=== PATIENT | male | born 1960 | race Caucasian/White ===

== ENCOUNTER 2017-05-09 08:23 | Emergency (ER) | payer OTHER ==
[~2017-05-09] VITALS: Ht 160 cm; Wt 77.1 kg
[2017-05-09 10:00] LABS: BASOPHILS ABSOLUTE AUTO 0.04 K/mm3 (0.00-0.23); BASOPHILS PERCENT AUTO 1 % (0-2); EOSINOPHILS PERCENT AUTO 0 % (0-6); Hematocrit 41.5 % (37.0-53.0); Hemoglobin 14.8 g/dL (13.5-17.5); IMMATURE GRAN ABSOLUTE AUTO 0.02 K/mm3 (0.00-0.10); IMMATURE GRAN PERCENT AUTO 1 % (0-1); LYMPHOCYTES PERCENT AUTO 34 % (21-46); MONOCYTES ABSOLUTE AUTO 0.97 K/mm3 (0.16-1.47); MONOCYTES PERCENT AUTO 22 % (4-13); Mean Corpuscular HGB 33.6 pg (26.0-34.0); Mean Corpuscular HGB Conc 35.7 g/dL (31.5-36.5); Mean Corpuscular Volume 94 fL (80-100); Mean Platelet Volume 10.9 fL (9.1-12.4); NEUTROPHILS ABSOLUTE AUTO 1.91 K/mm3 (1.96-9.15); NEUTROPHILS PERCENT AUTO 43 % (41-73); Platelet Count 66 K/mm3 (150-400); RDW Coefficient Variation 12.9 % (11.7-14.2); RDW Standard Deviation 45.1 fL (35.1-46.3); White Blood Cell Count 4.44 K/mm3 (4.00-11.30)
[2017-05-09 10:14] LABS: Alanine Aminotransfer (ALT/SGP 62 U/L (12-78); Albumin/Globulin Ratio 0.7 (0.8-1.8); Alk Phos 76 U/L (50-136); Anion Gap 7 mmol/L (6-16); Aspartate Aminotrans (AST/SGOT 70 U/L (12-37); Bilirubin, Total 0.6 mg/dL (0.1-1.0); Blood Urea Nitrogen 7 mg/dL (8-24); Bun/Creatinine Ratio 9.6 (12.0-20.0); CO2, Blood 31 mmol/L (21-32); Calcium, Blood 8.2 mg/dL (8.5-10.1); Chloride, Blood 93 mmol/L (98-108); Creatinine, Blood 0.73 mg/dL (0.60-1.20); Globulin, Blood 4.3 g/dL (2.2-4.0); Glomerular Filtration Rate >60 (60-); Glucose, Blood 99 mg/dL (70-99); Potassium, Blood 3.1 mmol/L (3.5-5.5); Sodium, Blood 131 mmol/L (136-145); Total Protein, Blood 7.3 g/dL (6.4-8.2)
[2017-05-09] MEDS ORDERED: DOXY100 PO (11:28)
[2017-05-09] MEDS ORDERED: Zofran Odt4 MG SL (11:28)
[2017-10-13] MEDS ORDERED: Diclofenac Sodi50 MG PO (10:37)
[2017-10-13] MEDS ORDERED: ESCI20 PO (10:38)
[2017-10-13] MEDS ORDERED: OLANZAPINE15 MG PO (10:38)
[2017-10-13] MEDS ORDERED: EQ COMPLETE MU1 EAC1 PO (10:38)
[2017-10-13] MEDS ORDERED: K-Dur20 MEQ PO (10:39)
[2017-10-13] MEDS ORDERED: FURO20 PO (10:39)
[2017-10-13] MEDS ORDERED: OLAN5 PO (10:39)
[2017-10-13] MEDS ORDERED: Lexapro 10 mg T10 MG PO (15:06)
[2018-02-20] MEDS ORDERED: ALBU90OI INH (00:56)
[2018-02-20] MEDS ORDERED: LEVO750 PO (00:56)
[2018-02-20] MEDS ORDERED: Atrovent Inha12.9 GM INH (00:56)
[2018-02-20] MEDS ORDERED: Prednisone50 MG PO (00:56)
[2018-02-20] MEDS ORDERED: Norco 5-325 Ta1 EACH PO (00:57)
== END 2017-05-09 11:51 | disposition home or self-care (01) ==
LOC: ER 08:23
PROVIDERS: Physician Assistant
DX: J18.9 Pneumonia, unspecified organism (principal); E87.6 Hypokalemia; F17.210 Nicotine dependence, cigarettes, uncomplicated
CPT/HCPCS: 36415; 71046; 80053; 85025; 96360; 99283; J7030

== ENCOUNTER 2017-07-06 15:26 | Observation (INO) | payer OTHER ==
[~2017-07-06] VITALS: Ht 162.6 cm; Wt 79.4 kg
[~2017-07-06 15:26] MED LIST: DOXY100 PO; Zofran Odt4 MG SL
[2017-07-06 16:16] LABS: BASOPHILS ABSOLUTE AUTO 0.07 K/mm3 (0.00-0.23); BASOPHILS PERCENT AUTO 1 % (0-2); EOSINOPHILS ABSOLUTE AUTO 0.06 K/mm3 (0.00-0.68); EOSINOPHILS PERCENT AUTO 1 % (0-6); Hematocrit 46.5 % (37.0-53.0); IMMATURE GRAN ABSOLUTE AUTO 0.01 K/mm3 (0.00-0.10); IMMATURE GRAN PERCENT AUTO 0 % (0-1); LYMPHOCYTES ABSOLUTE AUTO 4.76 K/mm3 (0.84-5.20); LYMPHOCYTES PERCENT AUTO 67 % (21-46); MONOCYTES ABSOLUTE AUTO 0.67 K/mm3 (0.16-1.47); MONOCYTES PERCENT AUTO 9 % (4-13); Mean Corpuscular HGB 33.5 pg (26.0-34.0); Mean Corpuscular HGB Conc 34.4 g/dL (31.5-36.5); Mean Corpuscular Volume 97 fL (80-100); Mean Platelet Volume 9.5 fL (9.1-12.4); NEUTROPHILS ABSOLUTE AUTO 1.53 K/mm3 (1.96-9.15); NEUTROPHILS PERCENT AUTO 22 % (41-73); Platelet Count 104 K/mm3 (150-400); RDW Coefficient Variation 13.9 % (11.7-14.2); RDW Standard Deviation 50.1 fL (35.1-46.3); Red Blood Cell Count 4.78 M/mm3 (4.30-5.90)
[2017-07-06 16:35] LABS: Alanine Aminotransfer (ALT/SGP 70 U/L (12-78); Albumin, Blood 3.8 g/dL (3.4-5.0); Albumin/Globulin Ratio 0.8 (0.8-1.8); Alk Phos 106 U/L (50-136); Anion Gap 11 mmol/L (6-16); Aspartate Aminotrans (AST/SGOT 84 U/L (12-37); Bilirubin, Total 0.3 mg/dL (0.1-1.0); Blood Urea Nitrogen 10 mg/dL (8-24); Bun/Creatinine Ratio 14.8 (12.0-20.0); CO2, Blood 20 mmol/L (21-32); Calcium, Blood 8.4 mg/dL (8.5-10.1); Chloride, Blood 110 mmol/L (98-108); Creatinine, Blood 0.68 mg/dL (0.60-1.20); Ethanol (Alcohol), Blood, Med 296 mg/dL; Globulin, Blood 4.8 g/dL (2.2-4.0); Glomerular Filtration Rate >60 (60-); Glucose, Blood 116 mg/dL (70-99); Potassium, Blood 4.1 mmol/L (3.5-5.5); Salicylate 5.5 mg/dL (2.8-20.0); Sodium, Blood 141 mmol/L (136-145); Total Protein, Blood 8.6 g/dL (6.4-8.2)
[2017-07-06 16:39] LABS: Thyroid Stimulating Hormone 0.801 uIU/mL (0.360-4.800)
[2017-07-06 16:40] LABS: Acetaminophen, Random <2.0 ug/mL (10.0-30.0)
[2017-07-06 17:46] LABS: Source, Urine Clean Catch
[2017-07-06 18:04] LABS: Appearance, Urine Clear (Clear); Bilirubin, Urine Neg (Neg); Blood, Urine 1+ (Neg); Color, Urine Yellow (P-Yellow); Glucose Qualitative, Urine Neg (Neg); Ketones, Urine Neg (Neg); Leukocyte Esterase, Urine Neg (Neg); Nitrite, Urine Neg (Neg); Protein, Urine 3+ (Neg); Urobilinogen, Urine NORM (Normal)
[2017-07-06 18:23] LABS: Bacteria Few /hpf; Squamous Epithelial Cells Few /hpf (Few); White Blood Cells, Urine 0-2 /hpf (0-5)
[2017-07-06 18:31] LABS: U Amphetamine Screen Not Detected; U Barbituate Screen Not Detected; U Benzodiazapine Screen Not Detected; U Buprenorphine Screen Not Detected; U Cannabinoids Screen Not Detected; U Cocaine Screen Not Detected; U Methadone Screen Not Detected; U Methamphetamine Screen Not Detected; U Opiates Screen Not Detected; U Oxycodone Screen Not Detected; U Phencyclidine Screen Not Detected; U Propoxyphene Screen Not Detected
[2017-10-13] MEDS ORDERED: Diclofenac Sodi50 MG PO (10:37)
[2017-10-13] MEDS ORDERED: EQ COMPLETE MU1 EAC1 PO (10:38)
[2017-10-13] MEDS ORDERED: OLANZAPINE15 MG PO (10:38)
[2017-10-13] MEDS ORDERED: ESCI20 PO (10:38)
[2017-10-13] MEDS ORDERED: OLAN5 PO (10:39)
[2017-10-13] MEDS ORDERED: K-Dur20 MEQ PO (10:39)
[2017-10-13] MEDS ORDERED: FURO20 PO (10:39)
[2017-10-13] MEDS ORDERED: Lexapro 10 mg T10 MG PO (15:06)
[2018-02-20] MEDS ORDERED: ALBU90OI INH (00:56)
[2018-02-20] MEDS ORDERED: Atrovent Inha12.9 GM INH (00:56)
[2018-02-20] MEDS ORDERED: Prednisone50 MG PO (00:56)
[2018-02-20] MEDS ORDERED: LEVO750 PO (00:56)
[2018-02-20] MEDS ORDERED: Norco 5-325 Ta1 EACH PO (00:57)
== END 2017-07-07 11:33 | disposition home or self-care (01) ==
LOC: ER 15:26 → EOR 15:27
PROVIDERS: Emergency Medicine
DX: R45.851 Suicidal ideations (principal); F32.9 Major depressive disorder, single episode, unspecified; R45.1 Restlessness and agitation; F10.129 Alcohol abuse with intoxication, unspecified; F17.210 Nicotine dependence, cigarettes, uncomplicated; C34.91 Malignant neoplasm of unspecified part of right bronchus or lung; C34.92 Malignant neoplasm of unspecified part of left bronchus or lung; C18.9 Malignant neoplasm of colon, unspecified; Z90.49 Acquired absence of other specified parts of digestive tract
CPT/HCPCS: 36415; 80053; 81001; 84443; 85025; 96372; 99285; G0378; G0480; J1200; J1630; J2060

== ENCOUNTER 2017-07-14 16:11 | Observation (INO) | payer OTHER ==
[~2017-07-14] VITALS: Ht 160 cm; Wt 72.6 kg
[2017-07-14] MEDS ORDERED: DICL25ER PO (16:25)
[2017-07-14] MEDS ORDERED: QUET25 PO (16:25)
[2017-07-14] MEDS ORDERED: ESCI10 PO (16:25)
[2017-07-14 17:35] LABS: Source, Urine Clean Catch
[2017-07-14 17:40] LABS: Appearance, Urine Clear (Clear); Bilirubin, Urine Neg (Neg); Blood, Urine Neg (Neg); Color, Urine Yellow (P-Yellow); Glucose Qualitative, Urine Neg (Neg); Ketones, Urine Neg (Neg); Leukocyte Esterase, Urine Neg (Neg); Nitrite, Urine Neg (Neg); Protein, Urine 1+ (Neg); Urobilinogen, Urine NORM (Normal)
[2017-07-14 17:41] LABS: BASOPHILS ABSOLUTE AUTO 0.08 K/mm3 (0.00-0.23); BASOPHILS PERCENT AUTO 1 % (0-2); EOSINOPHILS ABSOLUTE AUTO 0.05 K/mm3 (0.00-0.68); EOSINOPHILS PERCENT AUTO 1 % (0-6); Hematocrit 45.6 % (37.0-53.0); IMMATURE GRAN ABSOLUTE AUTO 0.01 K/mm3 (0.00-0.10); IMMATURE GRAN PERCENT AUTO 0 % (0-1); LYMPHOCYTES ABSOLUTE AUTO 2.84 K/mm3 (0.84-5.20); LYMPHOCYTES PERCENT AUTO 48 % (21-46); MONOCYTES ABSOLUTE AUTO 0.69 K/mm3 (0.16-1.47); MONOCYTES PERCENT AUTO 12 % (4-13); Mean Corpuscular HGB 33.7 pg (26.0-34.0); Mean Corpuscular HGB Conc 35.1 g/dL (31.5-36.5); Mean Corpuscular Volume 96 fL (80-100); Mean Platelet Volume 9.8 fL (9.1-12.4); NEUTROPHILS ABSOLUTE AUTO 2.28 K/mm3 (1.96-9.15); NEUTROPHILS PERCENT AUTO 38 % (41-73); Platelet Count 117 K/mm3 (150-400); RDW Coefficient Variation 13.4 % (11.7-14.2); RDW Standard Deviation 48.1 fL (35.1-46.3); Red Blood Cell Count 4.75 M/mm3 (4.30-5.90); White Blood Cell Count 5.95 K/mm3 (4.00-11.30)
[2017-07-14 18:06] LABS: Alanine Aminotransfer (ALT/SGP 64 U/L (12-78); Albumin, Blood 3.8 g/dL (3.4-5.0); Albumin/Globulin Ratio 0.8 (0.8-1.8); Alk Phos 99 U/L (50-136); Anion Gap 12 mmol/L (6-16); Aspartate Aminotrans (AST/SGOT 71 U/L (12-37); Bilirubin, Total 0.5 mg/dL (0.1-1.0); Blood Urea Nitrogen 5 mg/dL (8-24); Bun/Creatinine Ratio 7.4 (12.0-20.0); CO2, Blood 21 mmol/L (21-32); Calcium, Blood 8.3 mg/dL (8.5-10.1); Chloride, Blood 106 mmol/L (98-108); Creatinine, Blood 0.67 mg/dL (0.60-1.20); Ethanol (Alcohol), Blood, Med 208 mg/dL; Globulin, Blood 4.5 g/dL (2.2-4.0); Glomerular Filtration Rate >60 (60-); Glucose, Blood 96 mg/dL (70-99); Potassium, Blood 3.8 mmol/L (3.5-5.5); Salicylate 4.8 mg/dL (2.8-20.0); Sodium, Blood 139 mmol/L (136-145); Thyroxine (T4) 7.2 ug/dL (4.5-12.1); Total Protein, Blood 8.3 g/dL (6.4-8.2)
[2017-07-14 18:12] LABS: U Amphetamine Screen Not Detected; U Barbituate Screen Not Detected; U Benzodiazapine Screen DETECTED; U Buprenorphine Screen Not Detected; U Cannabinoids Screen Not Detected; U Cocaine Screen Not Detected; U Methadone Screen Not Detected; U Methamphetamine Screen Not Detected; U Opiates Screen Not Detected; U Oxycodone Screen Not Detected; U Phencyclidine Screen Not Detected; U Propoxyphene Screen Not Detected
[2017-07-14 18:13] LABS: Acetaminophen, Random <2.0 ug/mL (10.0-30.0)
[2017-10-13] MEDS ORDERED: Diclofenac Sodi50 MG PO (10:37)
[2017-10-13] MEDS ORDERED: ESCI20 PO (10:38)
[2017-10-13] MEDS ORDERED: EQ COMPLETE MU1 EAC1 PO (10:38)
[2017-10-13] MEDS ORDERED: OLANZAPINE15 MG PO (10:38)
[2017-10-13] MEDS ORDERED: FURO20 PO (10:39)
[2017-10-13] MEDS ORDERED: OLAN5 PO (10:39)
[2017-10-13] MEDS ORDERED: K-Dur20 MEQ PO (10:39)
[2017-10-13] MEDS ORDERED: Lexapro 10 mg T10 MG PO (15:06)
[2018-02-20] MEDS ORDERED: Prednisone50 MG PO (00:56)
[2018-02-20] MEDS ORDERED: Atrovent Inha12.9 GM INH (00:56)
[2018-02-20] MEDS ORDERED: ALBU90OI INH (00:56)
[2018-02-20] MEDS ORDERED: LEVO750 PO (00:56)
[2018-02-20] MEDS ORDERED: Norco 5-325 Ta1 EACH PO (00:57)
== END 2017-07-16 10:10 | disposition home or self-care (01) ==
LOC: ER 16:11 → EOR 16:12
PROVIDERS: Physician Assistant
DX: R45.851 Suicidal ideations (principal); R45.850 Homicidal ideations; F32.9 Major depressive disorder, single episode, unspecified; F10.129 Alcohol abuse with intoxication, unspecified; F17.200 Nicotine dependence, unspecified, uncomplicated; Z79.899 Other long term (current) drug therapy; Z85.038 Personal history of other malignant neoplasm of large intestine; Z85.118 Personal history of other malignant neoplasm of bronchus and lung; Z90.49 Acquired absence of other specified parts of digestive tract; Y90.7 Blood alcohol level of 200-239 mg/100 ml
CPT/HCPCS: 80053; 84436; 84443; 85025; 96372; 99285; G0378; G0480; Q3014

== ENCOUNTER 2017-10-13 20:07 | Emergency (ER) | payer OTHER ==
[~2017-10-13] VITALS: Ht 160 cm; Wt 73.9 kg
[~2017-10-13 20:07] MED LIST changes: +DICL25ER PO; +Diclofenac Sodi50 MG PO; +EQ COMPLETE MU1 EAC1 PO; +ESCI10 PO; +ESCI20 PO; +FURO20 PO; +K-Dur20 MEQ PO; +Lexapro 10 mg T10 MG PO; +OLAN5 PO; +OLANZAPINE15 MG PO; +QUET25 PO
== END 2017-10-13 20:50 | disposition home or self-care (01) ==
LOC: ER 20:07
DX: F10.14 Alcohol abuse with alcohol-induced mood disorder (principal); Z79.899 Other long term (current) drug therapy; I10 Essential (primary) hypertension; F17.200 Nicotine dependence, unspecified, uncomplicated
CPT/HCPCS: 99282

== ENCOUNTER 2017-10-14 10:23 | Emergency (ER) | payer OTHER ==
[~2017-10-14] VITALS: Ht 160 cm; Wt 73.9 kg
== END 2017-10-14 10:35 | disposition home or self-care (01) ==
LOC: ER 10:23
DX: F10.129 Alcohol abuse with intoxication, unspecified (principal); Z79.899 Other long term (current) drug therapy; F17.200 Nicotine dependence, unspecified, uncomplicated
CPT/HCPCS: 99283

== ENCOUNTER 2017-10-14 17:39 | Emergency (ER) | payer OTHER ==
[~2017-10-14] VITALS: Ht 160 cm; Wt 73.9 kg
== END 2017-10-14 19:06 ==
LOC: ER 17:39
DX: F32.9 Major depressive disorder, single episode, unspecified (principal); R45.851 Suicidal ideations; Z79.899 Other long term (current) drug therapy; F17.200 Nicotine dependence, unspecified, uncomplicated
CPT/HCPCS: 99283

== ENCOUNTER 2018-01-13 05:12 | Emergency (ER) | payer OTHER ==
[~2018-01-13] VITALS: Ht 160 cm; Wt 74.8 kg
== END 2018-01-13 05:22 ==
LOC: ER 05:12
DX: F10.129 Alcohol abuse with intoxication, unspecified (principal); F17.200 Nicotine dependence, unspecified, uncomplicated; Z79.899 Other long term (current) drug therapy
CPT/HCPCS: 99282

== ENCOUNTER 2018-04-27 13:13 | Emergency (ER) | payer OTHER ==
[~2018-04-27] VITALS: Ht 160 cm; Wt 83.5 kg
[~2018-04-27 13:13] MED LIST changes: +ALBU90OI INH; +Atrovent Inha12.9 GM INH; +LEVO750 PO; +Norco 5-325 Ta1 EACH PO; +Prednisone50 MG PO
[2018-04-27 13:45] LABS: BASOPHILS ABSOLUTE AUTO 0.07 K/mm3 (0.00-0.23); BASOPHILS PERCENT AUTO 1 % (0-2); EOSINOPHILS ABSOLUTE AUTO 0.02 K/mm3 (0.00-0.68); EOSINOPHILS PERCENT AUTO 0 % (0-6); Hematocrit 48.9 % (37.0-53.0); Hemoglobin 17.3 g/dL (13.5-17.5); IMMATURE GRAN ABSOLUTE AUTO 0.02 K/mm3 (0.00-0.10); IMMATURE GRAN PERCENT AUTO 0 % (0-1); LYMPHOCYTES ABSOLUTE AUTO 3.06 K/mm3 (0.84-5.20); LYMPHOCYTES PERCENT AUTO 57 % (21-46); MONOCYTES ABSOLUTE AUTO 0.59 K/mm3 (0.16-1.47); MONOCYTES PERCENT AUTO 11 % (4-13); Mean Corpuscular HGB 33.7 pg (26.0-34.0); Mean Corpuscular HGB Conc 35.4 g/dL (31.5-36.5); Mean Corpuscular Volume 95 fL (80-100); Mean Platelet Volume 9.7 fL (9.1-12.4); NEUTROPHILS ABSOLUTE AUTO 1.63 K/mm3 (1.96-9.15); NEUTROPHILS PERCENT AUTO 30 % (41-73); Platelet Count 115 K/mm3 (150-400); RDW Coefficient Variation 12.7 % (11.7-14.2); RDW Standard Deviation 45.1 fL (35.1-46.3); Red Blood Cell Count 5.14 M/mm3 (4.30-5.90); White Blood Cell Count 5.39 K/mm3 (4.00-11.30)
[2018-04-27 14:04] LABS: Alanine Aminotransfer (ALT/SGP 102 U/L (12-78); Albumin/Globulin Ratio 0.9 (0.8-1.8); Alk Phos 107 U/L (50-136); Anion Gap 8 mmol/L (6-16); Aspartate Aminotrans (AST/SGOT 120 U/L (12-37); Bilirubin, Total 0.6 mg/dL (0.1-1.0); Blood Urea Nitrogen 6 mg/dL (8-24); Bun/Creatinine Ratio 8.2 (12.0-20.0); CO2, Blood 26 mmol/L (21-32); Calcium, Blood 8.7 mg/dL (8.5-10.1); Chloride, Blood 105 mmol/L (98-108); Creatinine, Blood 0.74 mg/dL (0.60-1.20); Globulin, Blood 4.4 g/dL (2.2-4.0); Glomerular Filtration Rate >60 (60-); Glucose, Blood 101 mg/dL (70-99); Potassium, Blood 3.7 mmol/L (3.5-5.5); Sodium, Blood 139 mmol/L (136-145); Total Protein, Blood 8.4 g/dL (6.4-8.2); Troponin I <0.015 ng/mL (0.000-0.040)
== END 2018-04-27 16:23 | disposition home or self-care (01) ==
LOC: ER 13:13
PROVIDERS: Physician Assistant
DX: R55 Syncope and collapse (principal); F10.20 Alcohol dependence, uncomplicated; J44.9 Chronic obstructive pulmonary disease, unspecified; F32.9 Major depressive disorder, single episode, unspecified; F17.200 Nicotine dependence, unspecified, uncomplicated
CPT/HCPCS: 36415; 71046; 80053; 84484; 85025; 93005; 93010; 99284-25

== ENCOUNTER 2018-08-24 00:55 | Inpatient (IN) | payer OTHER ==
[~2018-08-24] VITALS: Ht 160 cm; Wt 82.4 kg
[2018-08-24 01:27] LABS: BASOPHILS ABSOLUTE AUTO 0.09 K/mm3 (0.00-0.23); BASOPHILS PERCENT AUTO 1 % (0-2); EOSINOPHILS ABSOLUTE AUTO 0.11 K/mm3 (0.00-0.68); EOSINOPHILS PERCENT AUTO 2 % (0-6); Hematocrit 44.4 % (37.0-53.0); Hemoglobin 15.3 g/dL (13.5-17.5); IMMATURE GRAN ABSOLUTE AUTO 0.02 K/mm3 (0.00-0.10); IMMATURE GRAN PERCENT AUTO 0 % (0-1); LYMPHOCYTES ABSOLUTE AUTO 3.43 K/mm3 (0.84-5.20); LYMPHOCYTES PERCENT AUTO 54 % (21-46); MONOCYTES ABSOLUTE AUTO 0.55 K/mm3 (0.16-1.47); MONOCYTES PERCENT AUTO 9 % (4-13); Mean Corpuscular HGB 32.8 pg (26.0-34.0); Mean Corpuscular HGB Conc 34.5 g/dL (31.5-36.5); Mean Corpuscular Volume 95 fL (80-100); Mean Platelet Volume 9.4 fL (9.1-12.4); NEUTROPHILS PERCENT AUTO 34 % (41-73); Platelet Count 192 K/mm3 (150-400); RDW Standard Deviation 49.2 fL (35.1-46.3); Red Blood Cell Count 4.67 M/mm3 (4.30-5.90)
[2018-08-24 01:41] LABS: Alanine Aminotransfer (ALT/SGP 97 U/L (12-78); Albumin, Blood 3.1 g/dL (3.4-5.0); Albumin/Globulin Ratio 0.7 (0.8-1.8); Alk Phos 110 U/L (50-136); Anion Gap 8 mmol/L (6-16); Aspartate Aminotrans (AST/SGOT 114 U/L (12-37); Bilirubin, Total 0.5 mg/dL (0.1-1.0); Blood Urea Nitrogen 5 mg/dL (8-24); CO2, Blood 25 mmol/L (21-32); Calcium, Blood 8.2 mg/dL (8.5-10.1); Chloride, Blood 112 mmol/L (98-108); Creatinine, Blood 0.62 mg/dL (0.60-1.20); Ethanol (Alcohol), Blood, Med 244 mg/dL; Globulin, Blood 4.3 g/dL (2.2-4.0); Glomerular Filtration Rate >60 (60-); Glucose, Blood 123 mg/dL (70-99); Potassium, Blood 3.7 mmol/L (3.5-5.5); Sodium, Blood 145 mmol/L (136-145); Total Protein, Blood 7.4 g/dL (6.4-8.2); Troponin I <0.015 ng/mL (0.000-0.040)
--- NOTE | 2018-08-24 06:05 | NUR ---
PCU ADMIT / SHIFT SUMMARY PT BROUGHT TO PCU RM 13 FROM THE ER @ 0430 BY [facility]. PT ABLE TO STAND AND AMBULATE TO BED W/OUT ASSISTANCE. PT A&O X4, DIRTY IN APPEARANCE W/ HANDS COVERED IN DIRT AND CLOTHING/BODY SMELLING OF OLD URINE. LUNG SOUNDS WHEEZY T/O. SPO2 > 92% ON 2L NC. MONITOR SHOWS NSR. PT HAS VISIBLE TREMOR AND STATES NORMALLY HAVING FIRST DRINK OF THE DAY @ 0700. MEDICATING PT PER EMAR. WILL CONTINUE TO MONITOR AND PROVIDE CARE UNTIL REPORT OFF TO DAY SHIFT RN.
[2018-08-24 06:46] LABS: Adenovirus Not Detected (NOT DETECT); Bordetella pertussis Not Detected (NOT DETECT); Chlamydophila pneumoniae Not Detected (NOT DETECT); Coronavirus 229E Not Detected (NOT DETECT); Coronavirus HKU1 Not Detected (NOT DETECT); Coronavirus NL63 Not Detected (NOT DETECT); Coronavirus OC43 Not Detected (NOT DETECT); Human Metapneumovirus Not Detected (NOT DETECT); Human Rhinovirus/Enterovirus Not Detected (NOT DETECT); Influenza A Not Detected (NOT DETECT); Influenza A/2009-H1 Not Detected (NOT DETECT); Influenza A/H1 Not Detected (NOT DETECT); Influenza A/H3 Not Detected (NOT DETECT); Influenza B Not Detected (NOT DETECT); Mycoplasma pneumoniae Not Detected (NOT DETECT); Parainfluenza Virus 1 Not Detected (NOT DETECT); Parainfluenza Virus 2 Not Detected (NOT DETECT); Parainfluenza Virus 3 Not Detected (NOT DETECT); Parainfluenza Virus 4 Not Detected (NOT DETECT); Respiratory Syncytial Virus Not Detected (NOT DETECT)
[2018-08-24 07:26] LABS: Hematocrit 46.4 % (37.0-53.0); Hemoglobin 15.6 g/dL (13.5-17.5); Mean Corpuscular HGB 32.2 pg (26.0-34.0); Mean Corpuscular HGB Conc 33.6 g/dL (31.5-36.5); Mean Corpuscular Volume 96 fL (80-100); Mean Platelet Volume 9.6 fL (9.1-12.4); Platelet Count 167 K/mm3 (150-400); RDW Coefficient Variation 14.1 % (11.7-14.2); RDW Standard Deviation 49.5 fL (35.1-46.3); Red Blood Cell Count 4.85 M/mm3 (4.30-5.90); White Blood Cell Count 2.76 K/mm3 (4.00-11.30)
[2018-08-24 07:45] LABS: Alanine Aminotransfer (ALT/SGP 98 U/L (12-78); Albumin, Blood 3.3 g/dL (3.4-5.0); Albumin/Globulin Ratio 0.7 (0.8-1.8); Alk Phos 117 U/L (50-136); Anion Gap 10 mmol/L (6-16); Aspartate Aminotrans (AST/SGOT 93 U/L (12-37); Bilirubin, Total 0.3 mg/dL (0.1-1.0); Blood Urea Nitrogen 7 mg/dL (8-24); Bun/Creatinine Ratio 10.5 (12.0-20.0); CO2, Blood 22 mmol/L (21-32); Calcium, Blood 8.6 mg/dL (8.5-10.1); Chloride, Blood 110 mmol/L (98-108); Creatinine, Blood 0.67 mg/dL (0.60-1.20); Globulin, Blood 4.5 g/dL (2.2-4.0); Glomerular Filtration Rate >60 (60-); Glucose, Blood 193 mg/dL (70-99); Potassium, Blood 3.8 mmol/L (3.5-5.5); Sodium, Blood 142 mmol/L (136-145); Total Protein, Blood 7.8 g/dL (6.4-8.2)
--- NOTE | 2018-08-24 13:21 | NUR ---
Assumed care of pt at approx 0700. Pt presents with slurred speech and states that he is currenly intoxicated. pt VSS, in no apparent sign of distress. States pain in chest that worsens with inspiration and movement. Dr Conley notified and troponin ordered. Trops negative. Pt educated on difference between chest pain related to cardiac function and substernal esophogeal pain. Pt states pain began after eating breakfast. No further c/o pain at this time (1337) Pt states he drinks 9-11 "the big ones" of beers a day. Last beer consumed at approx 2000 on 08/23. Pt states he starts drinking at 0700 every day "like clockwork". Pt monitored per CIWA protocol and ativan given per orders. Pt states "I just went on a big binger" which lead to his coming to the ED. Will continue to monitor and update as approrpiate. Will continue CIWA monitoring. See shift assessment for detailed assessment.
--- NOTE | 2018-08-24 18:44 | NUR ---
shift summary pt remains stable. vss. no apparent sign of distress. ciwa assessment completed q4h per protocol. last ciwa completed at approx 1815, score 13, 2mg ativan given per orders. pt states that he would like to sleep tonight. pt pleasant, compliant, calls appropriately. pt states he voided 3 times this shift. pt a&o, withdrawing from etoh. will continue to monitor until report is given to rashmi james.
--- NOTE | 2018-08-25 06:46 | NUR ---
SHIFT SUMMARY PT A&O X4. PT ABLE TO SLEEP MAJORITY OF SHIFT W/ NO COMPLAINT EXCEPT FOR MILD HEADACHE W/ NO REQUEST FOR MEDICATION. TREMORS IN ARMS WHEN EXTENDED. PT STATES ETOH WITHDRAWAL "NOT BAD YET BUT IT WILL BE." VSS. WILL CONTINUE TO MONITOR AND PROVIDE CARE UNTIL REPORT OFF TO DAY SHIFT RN.
[2018-08-25 11:34] LABS: BASOPHILS ABSOLUTE AUTO 0.01 K/mm3 (0.00-0.23); BASOPHILS PERCENT AUTO 0 % (0-2); EOSINOPHILS PERCENT AUTO 0 % (0-6); Hematocrit 45.2 % (37.0-53.0); Hemoglobin 15.5 g/dL (13.5-17.5); IMMATURE GRAN ABSOLUTE AUTO 0.04 K/mm3 (0.00-0.10); IMMATURE GRAN PERCENT AUTO 0 % (0-1); LYMPHOCYTES PERCENT AUTO 8 % (21-46); MONOCYTES ABSOLUTE AUTO 0.35 K/mm3 (0.16-1.47); MONOCYTES PERCENT AUTO 4 % (4-13); Mean Corpuscular HGB 32.4 pg (26.0-34.0); Mean Corpuscular HGB Conc 34.3 g/dL (31.5-36.5); Mean Corpuscular Volume 94 fL (80-100); Mean Platelet Volume 10.1 fL (9.1-12.4); NEUTROPHILS ABSOLUTE AUTO 8.11 K/mm3 (1.96-9.15); NEUTROPHILS PERCENT AUTO 88 % (41-73); Platelet Count 188 K/mm3 (150-400); RDW Coefficient Variation 13.5 % (11.7-14.2); RDW Standard Deviation 46.9 fL (35.1-46.3); Red Blood Cell Count 4.79 M/mm3 (4.30-5.90); White Blood Cell Count 9.21 K/mm3 (4.00-11.30)
[2018-08-25 12:02] LABS: Albumin, Blood 2.9 g/dL (3.4-5.0); Anion Gap 7 mmol/L (6-16); Blood Urea Nitrogen 11 mg/dL (8-24); Bun/Creatinine Ratio 15.4 (12.0-20.0); CO2, Blood 27 mmol/L (21-32); Calcium, Blood 8.8 mg/dL (8.5-10.1); Chloride, Blood 107 mmol/L (98-108); Creatinine, Blood 0.71 mg/dL (0.60-1.20); Glomerular Filtration Rate >60 (60-); Glucose, Blood 226 mg/dL (70-99); Phosphorus, Blood 2.4 mg/dL (2.5-4.9); Potassium, Blood 3.9 mmol/L (3.5-5.5); Sodium, Blood 141 mmol/L (136-145)
--- NOTE | 2018-08-25 13:16 | NUR ---
Assumed care of pt at approx 0700. vss with exception of hypertension. pt in no apparent sign of distress. completed CIWA assessment per protocol. Ativan given PRN per CIWA protocol. Pt states desire to become sober post hospital stay. Dr. Conley in this AM with pt. to update plan of care. admission orders received per dr. conley. GI consult obtained per md orders. continuing to closely monitor withdrawl and medicate per protocol. pt denies pain at this time. Pt denies chest pain or chest pressure.pt a&ox4, calls appropriately, bed in lowest, locked position. will continue to monitor as appropriate. see shift assessment for detailed assessment.
--- NOTE | 2018-08-25 18:06 | NUR ---
Shift Summary No acute changes this shift. Pt remains compliant with all care provided by this RN. CIWA assessment completed per protocol. Total of 6mg ativan given this shift per MAR orders with CIWA protocol. Pt with bed alarm on all shift d/t fall risk. Assisted pt with urinal and to toilet for BM this shift. VSS. No concerns, questions, or complaints from pt at this time. Pt calls appropriately, bed in lowest position, wheels locked. Pt denies chest pain/pressure. SOB with activity and moderate BUSTAMANTE noted this shift. Dr Sullivan consulted by Dr. Conley. In to see pt this afternoon. Dr Sullivan ordered Barium Esophagous Eval for tomorrow, 08/26. No further orders recieved at this time Will continue to monitor and update as appropriate.
--- NOTE | 2018-08-26 00:01 | NUR ---
WITHDRAWAL UPDATE INITIAL CIWA SCORE OF "12" BEGINNING OF THIS SHIFT. CIWA OF "0" AT THIS TIME. PT STATES WITHDRAWAL SYMPTOMS "COME AND GO" AND STATES SYMPTOMS TO BE LESS OVER NIGHT. PT ALSO STATES SYMPTOMS WORSEN IN THE MORNINGS AROUND 0700. WILL CONTINUE TO MONITOR AND TREAT PER ORDERS.
[2018-08-26 03:56] LABS: BASOPHILS ABSOLUTE AUTO 0.01 K/mm3 (0.00-0.23); BASOPHILS PERCENT AUTO 0 % (0-2); EOSINOPHILS ABSOLUTE AUTO 0.01 K/mm3 (0.00-0.68); EOSINOPHILS PERCENT AUTO 0 % (0-6); Hemoglobin 15.3 g/dL (13.5-17.5); IMMATURE GRAN ABSOLUTE AUTO 0.06 K/mm3 (0.00-0.10); IMMATURE GRAN PERCENT AUTO 1 % (0-1); LYMPHOCYTES ABSOLUTE AUTO 0.76 K/mm3 (0.84-5.20); LYMPHOCYTES PERCENT AUTO 8 % (21-46); MONOCYTES ABSOLUTE AUTO 0.39 K/mm3 (0.16-1.47); MONOCYTES PERCENT AUTO 4 % (4-13); Mean Corpuscular HGB 32.3 pg (26.0-34.0); Mean Corpuscular Volume 95 fL (80-100); Mean Platelet Volume 10.1 fL (9.1-12.4); NEUTROPHILS ABSOLUTE AUTO 8.43 K/mm3 (1.96-9.15); NEUTROPHILS PERCENT AUTO 87 % (41-73); Platelet Count 158 K/mm3 (150-400); RDW Coefficient Variation 13.6 % (11.7-14.2); RDW Standard Deviation 48.1 fL (35.1-46.3); Red Blood Cell Count 4.73 M/mm3 (4.30-5.90); White Blood Cell Count 9.66 K/mm3 (4.00-11.30)
[2018-08-26 04:13] LABS: Albumin, Blood 2.9 g/dL (3.4-5.0); Anion Gap 7 mmol/L (6-16); Blood Urea Nitrogen 16 mg/dL (8-24); Bun/Creatinine Ratio 19.7 (12.0-20.0); CO2, Blood 27 mmol/L (21-32); Calcium, Blood 8.7 mg/dL (8.5-10.1); Chloride, Blood 107 mmol/L (98-108); Creatinine, Blood 0.81 mg/dL (0.60-1.20); Glomerular Filtration Rate >60 (60-); Glucose, Blood 174 mg/dL (70-99); Phosphorus, Blood 3.4 mg/dL (2.5-4.9); Sodium, Blood 141 mmol/L (136-145)
--- NOTE | 2018-08-26 04:45 | NUR ---
SHIFT SUMMARY PT A&O X4, PLEASANT AND COOPERATIVE. PT WITHDRAWAL SYMPTOMS MILD AT THIS TIME W/ CIWA SCORE OF "12" AT BEGINNING OF SHIFT, "0" UPON MIDNIGHT ASSESSMENT, AND "1" UPON 0400 ASSESSMENT. PT REPORTS WITHDRAWAL SYMPTOMS TO COME AND GO, STATING THAT SYMPTOMS WORSEN DURING THE DAY. PT MEDICATED PER E-MAR. PT ABLE TO SLEEP MAJORITY OF SHIFT. VSS. WILL CONTINUE TO MONITOR AND PROVIDE CARE UNTIL REPORT OFF TO DAY SHIFT RN.
--- NOTE | 2018-08-26 07:53 | NUR ---
The pt is c/o itching on his arms and back NO rash noted; he is associating it with medication that he received here at the [facility]. His only other complaint is that he is very weak, and needs the walker to get into the bathroom. IV left forearm redressed, but noted that it is leaking, so it will need to be rotated.
--- NOTE | 2018-08-26 09:51 | NUR ---
Assumed care of pt at approx 0700. pt vss and reports improved withdrawl symptoms. pt with less tremors but states "i am itchy everywhere". pt in no apparent sign of distress. breathing e/u without complaint of chest pain or pressure. pt states slight increase in pain with inspiration but improving. Pt A&Ox4, calls appropriately, bed locked in lowest position with bed alarm on. Call light in reach. Dr. Conley in with pt this morning providing update on condition and plan of care. Plan is to continue CIWA and possible medical transfer if CIWA score remain low. Pt left via wheelchair and accomplanied by transport to barium swallow eval at approx 0945. see shift assessment for detailed assessment. will continue to monitor and update care team as appropriate.
--- NOTE | 2018-08-26 19:16 | NUR ---
SHIFT SUMMARY no acute changes this shift. vss. pt in no apparent sign of distress. pt without chest pain or chest pressure. pt without complaint of new onset pain of any kind. CIWA assessments continued and interventions implemented per protocol. pt complaint of new rash. dr aguirre notifed and claritin ordered. cream applied to pt, linins changed, and gown changed. rash and itching has improved since interventions placed. pt remains a&ox4. plan of care is possible medical transfer tomorrow. report given to JOCELYNE Coon who will proceed with care for this night.
--- NOTE | 2018-08-27 04:02 | NUR ---
PT HAD INCREASED ANXIETY AND RESTLESSNESS THIS MORNING AND DEMANDED TO BE LET TO GO OUTSIDE. PT REEDUCATED THAT PCU STATUS PTS ARE NOT ALLOWED OUTSIDE THE HOSPITAL FOR SAFETY REASONS, ATTEMPTED TO CALM AND REASON WITH PATIENT. HE HAD BEEN TALKED OUT OF GOING OUT DURING THE EVENING ALREADY, BUT COULD NOT BE DISSUADED THIS MORNING. PT MEDICATED W/ LIBRIUM AND MORNING MEDS, TELE REMOVED. VSS AT THIS TIME. HIS PERSONAL ITEMS HAVE BEEN LEFT IN THE ROOM AND HE STATES HE WILL BE RETURNING AFTER HE GETS SOME FRESH AIR. WALKED PT OUT OF THE UNIT W/ FWW AND GAVE HIM INSTRUCTIONS FOR RETURNING.
--- NOTE | 2018-08-27 04:48 | NUR ---
PT RETURNED TO FLOOR, STATES HE FEELS BETTER. ATIVAN OFFERED AND ACCEPTED. THE RASH TO HIS CHEST, BACK, AND FOREARMS APPEARS WORSENED, CREAM APPLIED.
--- NOTE | 2018-08-27 06:26 | NUR ---
SHIFT SUMMARY PT REMAINS ON FLOOR FOR COPD EXACERBATION, ETOH WITHDRAWAL. PT IS ON RA, DENIES SOB AT REST. HE HAS NOT NEEDED ANY SUPPLEMENTAL O2. TELE WAS NS TO ST OVERNIGHT. HE WAS ANXIOUS AND AGITATED THIS AM AND CIWA SCORE WAS 11 AT 0350 BUT BY 0550 HE IS DOWN TO A 5 AFTER A WALK AND A DOSE OF ATIVAN AND LIBRIUM. PT HAS AN ITCHY RASH OF UNKNOWN ORIGIN TO HIS TRUNK AND ARMS, CREAM PROVIDED. PT IS COOPERATIVE WITH CARES NOW THAT HIS AGITATION IS LESSENED. WILL CTM UNTIL PASS TO NEXT SHIFT.
[2018-08-27] MEDS ORDERED: SUCR1 PO (10:31)
[2018-08-27] MEDS ORDERED: ALBU90OI INH (10:32)
[2018-08-27] MEDS ORDERED: FLUTICASONE-SA1 EAC4 INH (10:37)
[2018-08-27] MEDS ORDERED: THERA1 EACH PO (10:37)
[2018-08-27] MEDS ORDERED: PANT40 PO (10:38)
[2018-08-27] MEDS ORDERED: PRED10 PO (10:40)
--- NOTE | 2018-08-27 10:55 | NUR ---
ASSUMED CARE OF PT AT APPROXIMATELY 0745. PT ALERT AND ORIENTED. VS STABLE. PT HAS SLIGHT TREMOR AND STATES MILD HEADACHE THAT IS TOLERABLE. DR. PINEDO IN TO SEE PT WITH ORDERS FOR DISCHARGE. DISCHARGE INSTRUCTIONS PROVIDED FOR PT. MEDICATIONS CALLED TO [facility]. PT OFFERED TAXI TO TAKE TO [facility], BUT REFUSES. IV REMOVED AND INTACT. EDUCATIONS PROVIDED ABOUT IMPORTANCE FOR FOLLOWING MEDICATION REGIMEN. PT REFUSED WHEELCHAIR AND TO BE TAKEN OUT. PT WALKED OUT WITH ALL OF HIS BELONGINGS.
[2018-08-27] MEDS ORDERED: ULTRA-LIGHT RO1 EACH UD (17:08)
== END 2018-08-27 11:16 | disposition home or self-care (01) | DRG 191 ==
LOC: ER 00:55 → PCU 00:56
PROVIDERS: Emergency Medicine; Family Medicine; ADMIT Internal Medicine
DX: J44.1 Chronic obstructive pulmonary disease with (acute) exacerbation (principal); F10.239 Alcohol dependence with withdrawal, unspecified; J98.11 Atelectasis; K21.9 Gastro-esophageal reflux disease without esophagitis; F10.229 Alcohol dependence with intoxication, unspecified; F17.210 Nicotine dependence, cigarettes, uncomplicated; R13.10 Dysphagia, unspecified; E66.9 Obesity, unspecified; K22.4 Dyskinesia of esophagus; L27.0 Generalized skin eruption due to drugs and medicaments taken internally; Z85.038 Personal history of other malignant neoplasm of large intestine; F32.9 Major depressive disorder, single episode, unspecified; Y90.6 Blood alcohol level of 120-199 mg/100 ml; K70.10 Alcoholic hepatitis without ascites
CPT/HCPCS: 36415; 71046; 74220; 76705; 80053; 80069; 82607; 82746; 84145; 84484; 85025; 85027; 87486; 87581; 87633; 87798; 93005; 93010; 94640; 94667; 94760; 96365; 96372; 96374; 96375; 96376; 99285-25; C9113; G0378; G0480; J1650; J1885; J1956; J2060; J2920; J2930

== ENCOUNTER 2018-08-27 12:50 | Emergency (ER) | payer OTHER ==
[~2018-08-27] VITALS: Ht 160 cm; Wt 79.4 kg
[~2018-08-27 12:50] MED LIST changes: +FLUTICASONE-SA1 EAC4 INH; +PANT40 PO; +PRED10 PO; +SUCR1 PO; +THERA1 EACH PO
[2018-08-27] MEDS ORDERED: ULTRA-LIGHT RO1 EACH UD (17:08)
== END 2018-08-27 13:25 | disposition home or self-care (01) ==
LOC: ER 12:50
DX: Z00.00 Encounter for general adult medical examination without abnormal findings (principal); Z59.0 Homelessness; F32.9 Major depressive disorder, single episode, unspecified; Z79.899 Other long term (current) drug therapy; Z79.52 Long term (current) use of systemic steroids
CPT/HCPCS: 99282

== ENCOUNTER 2018-08-27 16:03 | Emergency (ER) | payer OTHER ==
[~2018-08-27] VITALS: Ht 160 cm; Wt 74.8 kg
[2018-08-27 16:37] LABS: Hemoglobin 15.7 g/dL (13.5-17.5); Mean Corpuscular HGB 32.7 pg (26.0-34.0); Mean Corpuscular HGB Conc 34.1 g/dL (31.5-36.5); Mean Corpuscular Volume 96 fL (80-100); Mean Platelet Volume 10.1 fL (9.1-12.4); Platelet Count 174 K/mm3 (150-400); RDW Coefficient Variation 13.4 % (11.7-14.2); RDW Standard Deviation 47.9 fL (35.1-46.3); White Blood Cell Count 9.82 K/mm3 (4.00-11.30)
[2018-08-27 16:54] LABS: Anion Gap 13 mmol/L (6-16); Blood Urea Nitrogen 17 mg/dL (8-24); CO2, Blood 20 mmol/L (21-32); Calcium, Blood 8.8 mg/dL (8.5-10.1); Chloride, Blood 107 mmol/L (98-108); Creatinine, Blood 0.89 mg/dL (0.60-1.20); Ethanol (Alcohol), Blood, Med 148 mg/dL; Glomerular Filtration Rate >60 (60-); Glucose, Blood 112 mg/dL (70-99); Potassium, Blood 3.7 mmol/L (3.5-5.5); Sodium, Blood 140 mmol/L (136-145)
[2018-08-27] MEDS ORDERED: ULTRA-LIGHT RO1 EACH UD (17:08)
== END 2018-08-27 17:27 | disposition home or self-care (01) ==
LOC: ER 16:03
PROVIDERS: Emergency Medicine
DX: F10.229 Alcohol dependence with intoxication, unspecified (principal); Y90.6 Blood alcohol level of 120-199 mg/100 ml; J44.9 Chronic obstructive pulmonary disease, unspecified; E66.9 Obesity, unspecified; F17.210 Nicotine dependence, cigarettes, uncomplicated; R26.2 Difficulty in walking, not elsewhere classified
CPT/HCPCS: 36415; 80048; 85027; 93005; 93010; 99284-25; G0480

== ENCOUNTER 2018-09-09 10:20 | Emergency (ER) | payer OTHER ==
[~2018-09-09] VITALS: Ht 170.2 cm; Wt 86.2 kg
[~2018-09-09 10:20] MED LIST changes: +ULTRA-LIGHT RO1 EACH UD
[2018-09-09] MEDS ORDERED: CLON.1 PO (10:38)
[2018-09-09] MEDS ORDERED: GABA300T24 PO (10:38)
[2018-09-09] MEDS ORDERED: Thiamine HCl100 MG PO (10:39)
[2018-09-09] MEDS ORDERED: FOLI400 PO (10:39)
[2018-09-09] MEDS ORDERED: MELA3 PO (10:40)
[2018-09-09] MEDS ORDERED: THERA1 EACH PO (10:40)
== END 2018-09-09 11:15 | disposition home or self-care (01) ==
LOC: ER 10:20
DX: R19.5 Other fecal abnormalities (principal); F32.9 Major depressive disorder, single episode, unspecified; J44.9 Chronic obstructive pulmonary disease, unspecified; E66.9 Obesity, unspecified; F17.210 Nicotine dependence, cigarettes, uncomplicated; Z88.1 Allergy status to other antibiotic agents; Z88.8 Allergy status to other drugs, medicaments and biological substances; Z79.52 Long term (current) use of systemic steroids; Z79.899 Other long term (current) drug therapy
CPT/HCPCS: 82272; 99283